=== PATIENT | female | born 1995 | race Hispanic/Latino ===

== ENCOUNTER 2022-06-06 23:29 | Emergency (ER) | payer OTHER ==
[~2022-06-06] VITALS: Ht 157.5 cm; Wt 91.2 kg
[2022-06-07] MEDS ORDERED: IBUPROFEN 600 MG TABLET PO ONE (00:30)
[2022-06-07] MEDS ORDERED: IBUP-2070 PO (00:34)
[2022-06-07 00:57] VITALS: BP 128/68
== END 2022-06-07 00:57 | disposition home or self-care (01) ==
LOC: EDH 23:29
DX: S10.91XA Abrasion of unspecified part of neck, initial encounter (principal); S00.91XA Abrasion of unspecified part of head, initial encounter; X58.XXXA Exposure to other specified factors, initial encounter; Y93.89 Activity, other specified; Y92.89 Other specified places as the place of occurrence of the external cause; Y99.8 Other external cause status
CPT/HCPCS: 99282